=== PATIENT | female | born 1960 | race African-American/Black ===

== ENCOUNTER 2022-11-08 10:41 | Outpatient (CLI) | payer BC | END 2022-11-08 10:42 | disposition home or self-care (01) | LOC: BICMAMMO 10:41 | PROVIDERS: ATTEND Family Medicine | DX: Z12.31 Encounter for screening mammogram for malignant neoplasm of breast (principal); Z98.890 Other specified postprocedural states | CPT/HCPCS: 77063; 77067 ==

== ENCOUNTER 2023-12-13 12:06 | Outpatient (CLI) | payer BC | END 2023-12-13 12:07 | disposition home or self-care (01) | LOC: BICMAMMO 12:06 | PROVIDERS: ATTEND Family Medicine | DX: Z12.31 Encounter for screening mammogram for malignant neoplasm of breast (principal); Z91.89 Other specified personal risk factors, not elsewhere classified | CPT/HCPCS: 77063; 77067 ==

== ENCOUNTER 2024-11-28 09:34 | Outpatient (CLI) | payer OTHER | END 2024-11-28 09:35 | disposition home or self-care (01) | LOC: BICMAMMO 09:34 | PROVIDERS: ATTEND Family Medicine | DX: Z12.31 Encounter for screening mammogram for malignant neoplasm of breast (principal); Z91.89 Other specified personal risk factors, not elsewhere classified | CPT/HCPCS: 77063; 77067 ==